=== PATIENT | female | born 2000 | race Caucasian/White ===

== ENCOUNTER 2022-12-23 16:28 | Emergency (ER) | payer OTHER ==
[~2022-12-23] VITALS: Ht 165.1 cm; Wt 45.0 kg
[2022-12-23 16:33] VITALS: TEMP 98
[2022-12-23] MEDS ORDERED: [UNRECOGNIZED DRUG - OTHER] PO (16:35)
[2022-12-23] MEDS ORDERED: IBUPROFEN 400 MG TABLET PO ONE (18:45)
[2022-12-23 19:29] VITALS: BP 111/55; PULSE 84; RESP 16
== END 2022-12-23 20:14 | disposition home or self-care (01) ==
LOC: EMS 16:31
DX: M25.562 Pain in left knee (principal); M25.551 Pain in right hip; M79.644 Pain in right finger(s); Z91.010 Allergy to peanuts; Z91.012 Allergy to eggs; Z91.011 Allergy to milk products; Z91.018 Allergy to other foods
CPT/HCPCS: 73502; 99284